=== PATIENT | female | born 1945 | race Caucasian/White ===

== ENCOUNTER 2017-03-01 11:04 | Emergency (ER) | payer MEDICARE, OTHER ==
[2017-03-01 12:15] LABS: BASOPHIL 0.3 % (0-2); EOSINOPHIL 0.6 % (0-7); HCT 23.8 % (37.0-47.0); LYMPHOCYTE 22.2 % (15-48); MCH 30.6 pg (25.0-31.0); MCHC 33.2 g/dL (32.0-36.0); MCV 92.2 fL (78.0-100.0); MONOCYTE 6.1 % (0-12); MPV 10.1 fL (6.0-9.5); NEUTROPHIL 70.8 % (41-80); PLT 271 K/uL (150-400); RBC 2.58 M/uL (4.20-5.40); RDW 13.7 % (11.5-14.0); WBC 6.4 K/uL (4.0-10.5)
[2017-03-01 12:16] LABS: HGB 7.9 g/dl (12.5-16.0)
[2017-03-01 12:32] LABS: ALBUMIN 3.7 g/dL (3.4-4.8); BILIRUBIN - TOTAL 0.2 mg/dL (0.1-1.0); GLOBULIN (CALCULATION) 2.2 g/dL (2.2-4.2); POTASSIUM 4.7 mmol/L (3.5-5.1); TOTAL PROTEIN 5.9 g/dL (6.4-8.3)
== END 2017-03-01 15:10 | disposition home or self-care (01) ==
LOC: FER 11:04
PROVIDERS: Emergency Medicine
DX: K46.9 Unspecified abdominal hernia without obstruction or gangrene (principal); R06.02 Shortness of breath; I25.10 Atherosclerotic heart disease of native coronary artery without angina pectoris; E78.5 Hyperlipidemia, unspecified; Z87.891 Personal history of nicotine dependence; Z82.49 Family history of ischemic heart disease and other diseases of the circulatory system; Z79.02 Long term (current) use of antithrombotics/antiplatelets; Z79.899 Other long term (current) drug therapy; Z98.61 Coronary angioplasty status
CPT/HCPCS: 36415; 71020; 80053; 84484; 85025; 93005

== ENCOUNTER → 2020-12-28 | Day surgery (SDC) | payer MEDICARE, OTHER ==
[~2020-12-28] MED LIST: AMLODIPINE BESYL5 MG PO; AZELASTINE HCL6 ML EYEBOTH; CALTRATE 600 +1 EAC1 PO; CITRACAL-VIT D1 EACH PO; COLACE100 MG PO; COMBIVENT RESPIM4 GM INH; COZAAR100 MG PO; FLONASE ALLER15.8 ML; GAVISCON LIQUI355 ML PO; KEPPRA500 MG PO; LIDEX TOP; LIPITOR 10MG TA10 MG PO; LOVAZA1 GM PO; MIRALAX17 GM PO; PLAVIX75 M1 PO; PROTONIX20 MG PO; RANEXA500 MG PO; SINGULAIR10 MG PO; VENTOLIN HFA IN18 GM INH; ZYRTEC10 M3 PO
[2020-12-28 09:44] LABS: HGB 14.3 g/dl (12.5-16.0); MCV 91.1 fL (78.0-100.0); MPV 9.8 fL (6.0-9.5); RBC 4.61 M/uL (4.20-5.40); RDW 12.3 % (11.5-14.0); WBC 7.3 K/uL (4.0-10.5)
[2020-12-28 10:04] LABS: ALBUMIN 3.7 g/dL (3.4-5.0); BILIRUBIN - TOTAL 0.7 mg/dL (0.2-1.0); BUN/CREAT RATIO (CALC) 11.2 RATIO; CREATININE 0.98 mg/dL (0.51-0.95); GLOBULIN (CALCULATION) 3.2 g/dL; POTASSIUM 3.6 mmol/L (3.5-5.1); TOTAL PROTEIN 6.9 g/dL (6.4-8.2)
== END | disposition home or self-care (01) ==
LOC: FAS 08:33
PROVIDERS: Surgery
DX: K22.2 Esophageal obstruction (principal); K44.9 Diaphragmatic hernia without obstruction or gangrene; K29.70 Gastritis, unspecified, without bleeding; I25.119 Atherosclerotic heart disease of native coronary artery with unspecified angina pectoris; I11.9 Hypertensive heart disease without heart failure; E78.5 Hyperlipidemia, unspecified; K21.9 Gastro-esophageal reflux disease without esophagitis; E55.9 Vitamin D deficiency, unspecified; J45.909 Unspecified asthma, uncomplicated; Z88.6 Allergy status to analgesic agent; Z88.1 Allergy status to other antibiotic agents; Z79.899 Other long term (current) drug therapy; Z82.49 Family history of ischemic heart disease and other diseases of the circulatory system; Z82.5 Family history of asthma and other chronic lower respiratory diseases; Z83.2 Family history of diseases of the blood and blood-forming organs and certain disorders involving the immune mechanism; Z81.8 Family history of other mental and behavioral disorders; Z83.3 Family history of diabetes mellitus; Z87.891 Personal history of nicotine dependence
CPT/HCPCS: 36415; 80053; 88305; C1726; J0690; J2250; J2704; J7120